=== PATIENT | female | born 1975 | race Caucasian/White ===

== ENCOUNTER → 2016-10-09 | Outpatient (REF) | payer OTHER | LOC: M LAB REF 13:28 | PROVIDERS: ATTEND Physician Assistant Medical | DX: Z12.4 Encounter for screening for malignant neoplasm of cervix (principal) ==

== ENCOUNTER → 2018-05-22 | Outpatient (REF) | payer OTHER | LOC: M LAB REF 17:14 | DX: L29.0 Pruritus ani (principal) | CPT/HCPCS: 87070 ==

== ENCOUNTER → 2018-05-28 | Outpatient (REF) | payer OTHER | LOC: M LAB REF 05-29 18:53 | DX: J02.9 Acute pharyngitis, unspecified (principal) | CPT/HCPCS: 87081 ==

== ENCOUNTER → 2018-06-11 | Outpatient (REF) | payer OTHER | LOC: M LAB REF 09:39 | DX: J02.9 Acute pharyngitis, unspecified (principal) ==

== ENCOUNTER → 2018-12-12 | Outpatient (CLI) | payer OTHER ==
[2018-12-12 09:34] LABS: BASO # 0.1 10^3/uL (0.0-0.2); BASO % 0.9 % (0.0-1.0); EOS # 0.2 10^3/uL (0.0-0.50); EOS % 2.6 % (0.0-3.0); HEMATOCRIT 36.2 % (36.0-47.0); HEMOGLOBIN 11.5 g/dl (12.0-15.5); LYMPH # 1.5 10^3/uL (1.5-4.5); LYMPH % 21.2 % (24.0-44.0); MEAN CORPUSCULAR HEMOGLOBIN 25.4 pg (27.0-33.0); MEAN CORPUSCULAR HGB CONC 31.8 g/dl (32.0-36.5); MEAN CORPUSCULAR VOLUME 79.9 fl (80.0-96.0); MONO # 0.6 10^3/uL (0.0-0.8); MONO % 8.9 % (0.0-5.0); NEUTROPHILS # 4.6 10^3/uL (1.8-7.7); NEUTROPHILS % 65.8 % (36.0-66.0); PLATELET COUNT, AUTOMATED 346 10^3/uL (150-450); RED BLOOD COUNT 4.53 10^6/uL (4.00-5.40)
[2018-12-12 10:01] LABS: ALBUMIN 3.8 GM/DL (3.2-5.2); ALT/SGPT 20 U/L (12-78); BILIRUBIN,TOTAL 0.4 MG/DL (0.2-1.0); BLOOD UREA NITROGEN 12 MG/DL (7-18); CALCIUM LEVEL 8.6 MG/DL (8.5-10.1); CARBON DIOXIDE LEVEL 23 MEQ/L (21-32); CHLORIDE LEVEL 106 MEQ/L (98-107); CHOLESTEROL LEVEL 181 MG/DL (<200); CHOLESTEROL RISK RATIO 3.351 (<5); CREATININE FOR GFR 0.84 MG/DL (0.55-1.30); FERRITIN 5 NG/ML (8-252); GLOMERULAR FILTRATION RATE > 60.0 (>58); GLUCOSE, FASTING 91 MG/DL (70-100); HDL CHOLESTEROL 54 MG/DL (>40); IRON (FE) 50 UG/DL (50-170); LDL CHOLESTEROL 105 MG/DL (<100); NON-HDL-C 127 MG/DL; PERCENT SATURATION 9.5 % (13.2-45.0); POTASSIUM SERUM 4.3 MEQ/L (3.5-5.1); SODIUM LEVEL 137 MEQ/L (136-145); TOTAL IRON BINDING CAPACITY 525 UG/DL (250-450); TOTAL PROTEIN 7.5 GM/DL (6.4-8.2); TRIGLYCERIDES LEVEL 112 MG/DL (<150)
[2018-12-12 10:33] LABS: TOTAL 25(OH) VITAMIN D 26.7 NG/ML (30.0-100.0)
== END ==
LOC: M LAB 08:42
PROVIDERS: ATTEND Family Medicine
DX: D50.9 Iron deficiency anemia, unspecified (principal); E55.9 Vitamin D deficiency, unspecified; R03.0 Elevated blood-pressure reading, without diagnosis of hypertension

== ENCOUNTER → 2019-09-30 | Outpatient (CLI) | payer OTHER ==
[2019-09-30 13:52] LABS: BASO # 0.1 10^3/uL (0.0-0.2); BASO % 0.9 % (0.0-1.0); EOS # 0.3 10^3/uL (0.0-0.5); EOS % 4.1 % (0.0-3.0); HEMATOCRIT 34.8 % (36.0-47.0); HEMOGLOBIN 10.6 g/dl (12.0-15.5); LYMPH # 1.9 10^3/uL (1.5-5.0); LYMPH % 24.4 % (24.0-44.0); MEAN CORPUSCULAR HEMOGLOBIN 23.9 pg (27.0-33.0); MEAN CORPUSCULAR HGB CONC 30.5 g/dl (32.0-36.5); MEAN CORPUSCULAR VOLUME 78.6 fl (80.0-96.0); MONO # 0.7 10^3/uL (0.0-0.8); MONO % 8.6 % (0.0-5.0); NEUTROPHILS # 4.7 10^3/uL (1.5-8.5); NEUTROPHILS % 61.6 % (36.0-66.0); PLATELET COUNT, AUTOMATED 382 10^3/uL (150-450); RED BLOOD COUNT 4.43 10^6/uL (4.00-5.40); WHITE BLOOD COUNT 7.6 10^3/uL (4.0-10.0)
[2019-09-30 14:28] LABS: FERRITIN 4 NG/ML (8-252); IRON (FE) 28 UG/DL (50-170); PERCENT SATURATION 5.2 % (13.2-45.0); TOTAL IRON BINDING CAPACITY 541 UG/DL (250-450)
[2019-10-01 13:01] LABS: AMYLASE 49 U/L (25-115); LIPASE 111 U/L (73-393)
[2019-10-01 13:19] LABS: H PYLORI QUALITATIVE IgG NEGATIVE (NEGATIVE)
== END ==
LOC: M LAB 13:15
PROVIDERS: ATTEND Family Medicine
DX: D50.9 Iron deficiency anemia, unspecified (principal); K29.00 Acute gastritis without bleeding

== ENCOUNTER 2020-02-15 12:45 | Day surgery (SDC) | payer OTHER ==
[~2020-02-15] VITALS: Ht 167.6 cm; Wt 86.2 kg
[2020-02-15] MEDS ORDERED: NS 1,000 ML IV ONE (13:15)
[2020-02-15] MEDS ORDERED: propofoL 200 MG/20 ML VIAL As Ordered ONE ×3 (13:18→13:33)
[2020-02-15] MEDS ORDERED: LIDOCAINE 2% 100MG/5ML SDV (FOR ANES.) As Ordered ONE (13:18)
--- NOTE | 2020-02-15 13:29 | ROOR ---
Patient Name: Nu Frost Procedure Date: 02/15/2020 1:16 PM Date of : 1975 Age: 44 Room: [facility] Gender: Female Note Status: Finalized Procedure: Upper GI endoscopy Indications: Iron deficiency anemia Providers: Karan SIBLEY MD Referring MD: Fiordaliza Cerrato MD Requesting Provider: Medicines: Monitored Anesthesia Care Complications: No immediate complications. Procedure: Pre-Anesthesia Assessment: - The heart rate, respiratory rate, oxygen saturations, blood pressure, adequacy of pulmonary ventilation, and response to care were monitored throughout the procedure. The Endoscope was introduced through the mouth, and advanced to the third part of duodenum. The upper GI endoscopy was accomplished without difficulty. The patient tolerated the procedure well. Findings: The esophagus was normal. The stomach was normal. The examined duodenum was normal. Biopsies for histology were taken with a cold forceps in the second portion of the duodenum and in the third portion of the duodenum for evaluation of celiac disease. Impression: - Normal esophagus. - Normal stomach. - Normal examined duodenum. - Biopsies were taken with a cold forceps for evaluation of celiac disease. Recommendation: - Await pathology results. - Telephone endoscopist for pathology results in 2 weeks. Karan Sibley MD Karan SIBLEY MD 02/15/2020 1:28:50 PM Electronically signed by Karan SIBLEY MD Number of Addenda: 0 Note Initiated On: 02/15/2020 1:16 PM Estimated Blood Loss: Estimated blood loss: none.
--- NOTE | 2020-02-15 13:47 | ROOR ---
Patient Name: Nu Frost Procedure Date: 02/15/2020 1:17 PM Date of : 1975 Age: 44 Room: [facility] Gender: Female Note Status: Finalized Procedure: Colonoscopy Indications: Iron deficiency anemia Providers: Karan SIBLEY MD Referring MD: Fiordaliza Cerrato MD Requesting Provider: Medicines: Monitored Anesthesia Care Complications: No immediate complications. Procedure: Pre-Anesthesia Assessment: - The heart rate, respiratory rate, oxygen saturations, blood pressure, adequacy of pulmonary ventilation, and response to care were monitored throughout the procedure. The Colonoscope was introduced through the anus and advanced to 10 cm into the ileum. The colonoscopy was performed without difficulty. The patient tolerated the procedure well. The quality of the bowel preparation was good. Findings: The perianal and digital rectal examinations were normal. Multiple small and medium-mouthed diverticula were found in the entire colon. Internal hemorrhoids were found during retroflexion. The hemorrhoids were small. The exam was otherwise normal throughout the examined colon. The terminal ileum appeared normal. Impression: - Scattered diverticulosis throughout the entire examined colon. - Small Internal hemorrhoids. - The colon is otherwise normal. - The terminal ileum is normal. - No specimens collected. Recommendation: - Return to referring physician as previously scheduled. - Continue present medications. Karan Sibley MD Karan SIBLEY MD 02/15/2020 1:47:28 PM Electronically signed by Karan SILBEY MD Number of Addenda: 0 Note Initiated On: 02/15/2020 1:17 PM Estimated Blood Loss: Estimated blood loss: none.
[2020-02-15 14:15] VITALS: BP 122/70
[2020-06-02] MEDS ORDERED: IRON15CH PO (08:39)
[2020-06-02] MEDS ORDERED: FLUO40CA PO (08:39)
== END 2020-02-15 14:40 | disposition home or self-care (01) ==
LOC: M OPP 12:45
PROVIDERS: ATTEND Internal Medicine Gastroenterology
DX: K57.30 Diverticulosis of large intestine without perforation or abscess without bleeding (principal); K64.8 Other hemorrhoids; D50.9 Iron deficiency anemia, unspecified

== ENCOUNTER → 2020-05-27 | Outpatient (CLI) | payer OTHER ==
[~2020-05-27] MED LIST: FLUO40CA PO; IRON15CH PO
[2020-05-27 12:58] LABS: BASO % 0.4 % (0.0-1.0); EOS # 0.1 10^3/uL (0.0-0.5); EOS % 1.2 % (0.0-3.0); HEMATOCRIT 36.8 % (36.0-47.0); HEMOGLOBIN 10.9 g/dl (12.0-15.5); LYMPH # 1.5 10^3/uL (1.5-5.0); LYMPH % 22.5 % (24.0-44.0); MEAN CORPUSCULAR HEMOGLOBIN 22.5 pg (27.0-33.0); MEAN CORPUSCULAR HGB CONC 29.6 g/dl (32.0-36.5); MONO # 0.7 10^3/uL (0.0-0.8); MONO % 10.4 % (0.0-5.0); NEUTROPHILS # 4.4 10^3/uL (1.5-8.5); NEUTROPHILS % 65.1 % (36.0-66.0); PLATELET COUNT, AUTOMATED 391 10^3/uL (150-450); RED BLOOD COUNT 4.84 10^6/uL (4.00-5.40); WHITE BLOOD COUNT 6.7 10^3/uL (4.0-10.0)
[2020-05-27 13:48] LABS: BLOOD UREA NITROGEN 10 MG/DL (7-18); CALCIUM LEVEL 8.8 MG/DL (8.5-10.1); CARBON DIOXIDE LEVEL 23 MEQ/L (21-32); CHLORIDE LEVEL 107 MEQ/L (98-107); GLOMERULAR FILTRATION RATE > 60.0 (>58); GLUCOSE, FASTING 87 MG/DL (70-100); POTASSIUM SERUM 3.9 MEQ/L (3.5-5.1); SODIUM LEVEL 138 MEQ/L (136-145)
[2020-05-27 13:49] LABS: ALBUMIN 3.9 GM/DL (3.2-5.2); ALT/SGPT 22 U/L (12-78); BILIRUBIN,TOTAL 0.3 MG/DL (0.2-1.0); CHOLESTEROL LEVEL 180 MG/DL (<200); FERRITIN 4 NG/ML (8-252); HDL CHOLESTEROL 60 MG/DL (>40); IRON (FE) 18 UG/DL (50-170); LDL CHOLESTEROL 92 MG/DL (<100); NON-HDL-C 120 MG/DL; PERCENT SATURATION 3.3 % (13.2-45.0); TOTAL 25(OH) VITAMIN D 28.8 NG/ML (30.0-100.0); TOTAL IRON BINDING CAPACITY 539 UG/DL (250-450); TOTAL PROTEIN 7.7 GM/DL (6.4-8.2); TRIGLYCERIDES LEVEL 138 MG/DL (<150)
== END ==
LOC: M LAB 10:45
PROVIDERS: ATTEND Family Medicine
DX: D50.9 Iron deficiency anemia, unspecified (principal); E55.9 Vitamin D deficiency, unspecified; Z13.220 Encounter for screening for lipoid disorders; Z13.1 Encounter for screening for diabetes mellitus

== ENCOUNTER → 2020-06-04 | Outpatient (CLI) | payer OTHER | LOC: M LABSMTC 07:59 | PROVIDERS: ATTEND Anesthesiology | DX: Z01.818 Encounter for other preprocedural examination (principal); Z20.828 Contact with and (suspected) exposure to other viral communicable diseases | CPT/HCPCS: C9803; U0003 ==

== ENCOUNTER 2020-06-09 06:17 | Day surgery (SDC) | payer OTHER ==
[2020-06-09] VITALS (8 sets, daily range): BP systolic 103–123; BP diastolic 64–95
[~2020-06-09] VITALS: Ht 167.6 cm; Wt 86.2 kg
[~2020-06-09 06:17] MED LIST changes: +LR 1,000 ML IV ONE; +ceFAZolin SOD 2 GM in IV 1 EA IV ONE
[2020-06-09] MEDS ORDERED: fentaNYL 250 MCG/5 ML INJECTION (J3010) As Ordered ONE (06:58)
[2020-06-09] MEDS ORDERED: ONDANSETRON 4MG/2ML VIAL As Ordered ONE ×2 (06:58→10:33)
[2020-06-09] MEDS ORDERED: MIDAZOLAM INJ 2MG/2ML VIAL (J2250 PER 1MG) As Ordered ONE (06:58)
[2020-06-09] MEDS ORDERED: KETOROLAC 60MG 2ML VIAL As Ordered ONE (06:58)
[2020-06-09] MEDS ORDERED: dexameTHASONE 4 MG/ML 1ML VIAL (J1100 PER 1MG) As Ordered ONE (06:58)
[2020-06-09] MEDS ORDERED: propofoL 200 MG/20 ML VIAL As Ordered ONE (06:59)
[2020-06-09] MEDS ORDERED: SUGAMMADEX SODIUM 500 MG/5 ML VIAL (BRIDION) As Ordered ONE (06:59)
[2020-06-09] MEDS ORDERED: PHENYLephrine HCL 500 MCG/5 ML (100MCG/ML) SYRINGE (J2370) As Ordered ONE (06:59)
[2020-06-09] MEDS ORDERED: ePHEDrine SULFATE 25 MG/5 ML(5MG/ML) SYRINGE As Ordered ONE (06:59)
[2020-06-09] MEDS ORDERED: LIDOCAINE 2% 100MG/5ML SDV (FOR ANES.) As Ordered ONE (06:59)
[2020-06-09] MEDS ORDERED: ROCURONIUM BROMIDE 50 MG/5 ML VIAL As Ordered ONE ×2 (06:59→09:03)
[2020-06-09] MEDS ORDERED: SCOPOLAMINE 1MG TRANSDERMAL PATCH As Ordered ONE (07:11)
[2020-06-09 07:14] LABS: HEMATOCRIT 30.5 % (36.0-47.0); HEMOGLOBIN 9.2 g/dl (12.0-15.5); MEAN CORPUSCULAR HEMOGLOBIN 22.8 pg (27.0-33.0); MEAN CORPUSCULAR HGB CONC 30.2 g/dl (32.0-36.5); MEAN CORPUSCULAR VOLUME 75.7 fl (80.0-96.0); PLATELET COUNT, AUTOMATED 333 10^3/uL (150-450); RED BLOOD COUNT 4.03 10^6/uL (4.00-5.40); WHITE BLOOD COUNT 4.8 10^3/uL (4.0-10.0)
[2020-06-09] MEDS ORDERED: ACETAMINOPHEN 1000MG 100ML IV BTL (OFIRMEV) (J0131 PER 10MG) As Ordered ONE (07:55)
[2020-06-09] MEDS ORDERED: GLYCOPYRROLATE INJ 0.2 MG/ML 2 ML VIAL As Ordered ONE (08:50)
[2020-06-09] MEDS ORDERED: fentaNYL 100 MCG/2 ML INJECTION (J3010) As Ordered ONE (10:40)
[2020-06-09] MEDS: fentaNYL 100 MCG/2 ML INJECTION (J3010) IV PRN ×4 (10:41→11:01)
[2020-06-09] MEDS ORDERED: diphenhydrAMINE 50MG/ML VIAL (J1200) IV PRN (11:15)
[2020-06-09] MEDS ORDERED: METOCLOPRAMIDE INJ 10MG/2ML VIAL (J2765 PER 1) IV PRN (11:15)
[2020-06-09] MEDS ORDERED: PERCOCET 5MG/325MG TAB PO PRN (11:15)
[2020-06-09] MEDS ORDERED: NS 1,000 ML IV SCH (11:15)
[2020-06-09] MEDS ORDERED: NALOXONE INJ 0.4MG/1ML VIAL (J2310 PER 1MG) IV PRN (11:15)
[2020-06-09] MEDS ORDERED: ONDANSETRON 4MG/2ML VIAL IV PRN (11:15)
[2020-06-09] MEDS ORDERED: EPIDURAL/PCA KEYS XX PRN (11:15)
[2020-06-09] MEDS ORDERED: NALBUPHINE HCL 10 MG/ML AMP (J2300) IV PRN (11:15)
[2020-06-09] MEDS ORDERED: LR 1,000 ML IV SCH (11:15)
[2020-06-09] MEDS ORDERED: MORPHINE 1MG/ML IN 0.9% NACL 100ML IV BAG IV PRN (11:15)
[2020-06-09] MEDS: LR 1,000 ML IV SCH ×2 (11:30→22:13)
[2020-06-09] MEDS ORDERED: IBUPROFEN 600MG TAB PO PRN (11:30)
[2020-06-10 02:00] VITALS: BP 103/57
[2020-06-10] MEDS: LR 1,000 ML IV SCH (03:39)
[2020-06-10 06:00] VITALS: BP 106/59
[2020-06-10] MEDS ORDERED: NORCO, ANEXSIA 5/325MG TABLET (HYDROcodone/ACETAMINOPHEN) PO PRN (06:00)
[2020-06-10 06:27] LABS: HEMATOCRIT 27.9 % (36.0-47.0); HEMOGLOBIN 8.4 g/dl (12.0-15.5); MEAN CORPUSCULAR HEMOGLOBIN 23.1 pg (27.0-33.0); MEAN CORPUSCULAR HGB CONC 30.1 g/dl (32.0-36.5); MEAN CORPUSCULAR VOLUME 76.9 fl (80.0-96.0); PLATELET COUNT, AUTOMATED 290 10^3/uL (150-450); RED BLOOD COUNT 3.63 10^6/uL (4.00-5.40)
--- NOTE | 2020-06-10 07:46 | RO ---
DATE OF OPERATION: 06/09/2020 PREOPERATIVE DIAGNOSIS/INDICATION FOR SURGERY: Pain, bleeding and fibroids. POSTOPERATIVE DIAGNOSIS: Pain, bleeding and fibroids, endometriosis. PROCEDURE: Robotic-assisted hysterectomy with bilateral salpingo-oophorectomy. SURGEON: Elizabeth Clarke MD STACKING MACHINE OPERATOR: Monika Mercedes ANESTHESIA: General endotracheal anesthesia. BRIEF DESCRIPTION OF PROCEDURE AND FINDINGS: Nu was brought to the operating room where sufficient general endotracheal anesthesia was induced. She was prepped, draped and positioned in the usual sterile fashion with the uterine manipulator placed with some effort and then attention turned to the abdomen. A transverse semilunar incision was made over the line of her previous incision at the umbilicus. Sharp and blunt dissection was continued through the subcutaneous tissues to the level of the rectus fascia which was transversely incised, secured with #0 Vicryl retention sutures and peritoneum was then opened in direct open laparoscopic technique and Silvano cannula placed and CO2 insufflation then began. After adequate CO2 insufflation the peritoneal cavity was visualized. The upper abdomen was quite normal, no particular adhesions, but in the pelvis there were multiple adhesions of the descending colon suggestive of a little bit more than the typical and some of these are pictured because some of these are from the descending colon scarred anterior to the uterus and anteriorly to the left ovary and left infundibulopelvic ligament and there were also implants of what appeared to be endometriosis over the posterior cul-de-sac and the posterior aspect of the cervix at the level of the uterosacrals. There were also multiple adhesions anteriorly consistent with her history over the area of the bladder and there were benign appearing cysts upon the ovaries. There did not appear to be any endometriomas. Some pictures were taken to document all of this. The uterus was enlarged with fibroids as is documented in the pictures. This did not preclude us visualizing the ureters but it did minimize our ability to manipulate the uterus using the uterine manipulator. Working laparoscopically we placed two left side and one right side port for the robot and then docked the robot. With the patient in appropriate Trendelenburg position we began working from the robot console. Working from the robot console we then carefully brought down these adhesions along the descending colon and into the pelvis from the bowel to the uterus, lateral pelvic sidewall, the infundibulopelvic ligament and the ovary and having freed those adequately we then used bipolar cautery to cauterize the infundibulopelvic ligament on the left side and then carefully work our way through the broad ligament to the round and then progressed over to the patients right side. Using the physician assistant primary care port we displaced the uterus laterally because we really had limited mobility with the uterine manipulator because of the size of the uterus and its fibroids and scarring. After freeing the infundibulopelvic ligament and isolating it on the right side we were able to cauterize and transect it, again using the bipolar and then the robotic scissors and then carefully work our way through the broad ligament on the right side to the round which was also incised. It should be noted as documented on the photos there is a slight dimpling as the round enters the lateral pelvic sidewall on the right side, not a full blown hernia but a little dimple there. After we transected the round we worked down the anterior leaflet of the broad ligament and then back-filled the bladder several times as we carefully incised the bladder flap anteriorly and then were able to bring that bladder flap down anteriorly. Using the physician assistant primary care port and both tools we were able to see our way around the uterus in order to cauterize and transect the uterines but we had limited access posteriorly away from the bowel and anteriorly had some trouble getting low enough for the cuff and as we used the manipulator to push really hard to try to elevate this we perforated the anterior aspect of the uterus which was of course was coming out anyway and this was a dry perforation because we had already controlled the vessels. We could see that we did not have the manipulator fully seated, in part because we were in the canal and the fibroids were over top of that and were not readily manipulated from below. Given that we had the vascular supply controlled and the number of adhesions there were and some adhesions in the posterior cul-de-sac with that endometriosis evidence we decided to go below to free the cervix itself and then deliver the uterus. We then worked vaginally removing the uterine manipulator and of course taking all the sharp instruments out of the peritoneal cavity, then worked vaginally to circumferentially incise the cervix, isolate the cardinal ligaments, clamp, transect and ligate them using BuckleySchaefer clamps, Supercut scissors and then #0 Vicryl suture which was used for the entirety of the vaginal aspect of the approach and then the uterosacrals were carefully clamped, transected and ligated. From below, now that we had freed all the vascular supply, we were able to go through the posterior cuff without as much danger to the bowel and then join up with our already created anterior bladder dissection and vascular dissection and then deliver the uterus vaginally. The uterus was 307 gm so of course quite enlarged with those fibroids. It is possible, based on the visual appearance in the pelvis and the evidence of endometriosis that some of that is adenomyosis so of course the pathology will tell us that. We then used long Allis clamps to grasp the angles, oversewed the angles at the vaginal cuffs and re-secured the uterosacrals with #0 Vicryl with good hemostasis at all the pedicles. We closed the cuff vaginally using #0 Vicryl in running locked stitch with good approximation and hemostasis achieved. We had already had a view from above so we were able then to just remove the instruments and ports from above. We closed the deep wound at the umbilicus with #0 Vicryl retention sutures and then all the skin wounds were closed with 3-0 Vicryl subcuticular stitch. There was a little oozing on the right side port, did a deep layer closure there and that appeared to offer hemostasis. We closed the skin again with 3-0 Vicryl with good approximation and hemostasis achieved. Dry, sterile dressings were applied. ESTIMATED BLOOD LOSS FOR THE PROCEDURE: 80 mL. FLUID REPLACEMENT: Crystalloid. COMPLICATIONS: None. CONDITION AND DISPOSITION: Nu tolerated the procedure well and was recovering in the recovery room in good condition. HUNTER
== END 2020-06-10 11:25 | disposition home or self-care (01) ==
LOC: M SDC 06:17 → M MS5PR 12:00 → M SDC 06-10 11:25
PROVIDERS: ATTEND Obstetrics & Gynecology
DX: R10.2 Pelvic and perineal pain (principal); N93.9 Abnormal uterine and vaginal bleeding, unspecified; N80.0 Endometriosis of uterus; D25.9 Leiomyoma of uterus, unspecified; D64.9 Anemia, unspecified; F32.9 Major depressive disorder, single episode, unspecified; Z79.899 Other long term (current) drug therapy
CPT/HCPCS: 36415; 58573; 81025; 85027; 86850; 86900; 86901; 88307; 96360; 96361; J0131; J0690; J1100; J1885; J2250; J2370; J2405; J2765; J3010; S2900

== ENCOUNTER → 2020-07-05 | Outpatient (REF) | payer OTHER ==
[~2020-07-05] MED LIST changes: -LR 1,000 ML IV ONE; -ceFAZolin SOD 2 GM in IV 1 EA IV ONE
[2020-07-05 11:05] LABS: AMORPHOUS SEDIMENT SMALL (NEGATIVE); APPEARANCE, URINE CLEAR (CLEAR); BACTERIA, URINE AUTO 1+ (NEGATIVE); BILIRUBIN, URINE AUTO NEGATIVE (NEGATIVE); BLOOD, URINE BLOOD NEGATIVE (NEGATIVE); COLOR, URINE STRAW (YELLOW); GLUCOSE, URINE (UA) AUTO NEGATIVE (NEGATIVE); KETONE, URINE AUTO NEGATIVE (NEGATIVE); LEUKOCYTE ESTERASE, URINE AUTO 1+ (NEGATIVE); NITRITE, URINE AUTO NEGATIVE (NEGATIVE); PROTEIN, URINE AUTO NEGATIVE (NEGATIVE); RBC, URINE AUTO 0 /HPF (0-3); SPECIFIC GRAVITY URINE AUTO 1.003 (1.002-1.035); SQUAMOUS EPITHELIAL CELL UR AU 1 /HPF (0-6); UROBILINOGEN, URINE AUTO 0.2 mg/dL (0.0-2.0); WBC, URINE AUTO 1 /HPF (0-3)
== END ==
LOC: M SFHCPLAZ 08:39
PROVIDERS: ATTEND Family Medicine
DX: D50.9 Iron deficiency anemia, unspecified (principal); R31.0 Gross hematuria

== ENCOUNTER → 2021-06-13 | Outpatient (CLI) | payer OTHER ==
[2021-06-13 14:08] LABS: HEMATOCRIT 45.1 % (36.0-47.0); MEAN CORPUSCULAR HEMOGLOBIN 29.3 pg (27.0-33.0); MEAN CORPUSCULAR HGB CONC 33.3 g/dl (32.0-36.5); MEAN CORPUSCULAR VOLUME 88.1 fl (80.0-96.0); PLATELET COUNT, AUTOMATED 306 10^3/uL (150-450); RED BLOOD COUNT 5.12 10^6/uL (4.00-5.40); WHITE BLOOD COUNT 10.3 10^3/uL (4.0-10.0)
== END ==
LOC: M LAB 13:16
PROVIDERS: ATTEND Family Medicine
DX: D50.9 Iron deficiency anemia, unspecified (principal)

== ENCOUNTER → 2021-12-08 | Outpatient (CLI) | payer OTHER | LOC: M SLEEP HO 12:52 | PROVIDERS: ATTEND Nurse Practitioner Family | DX: R06.83 Snoring (principal) ==

== ENCOUNTER → 2022-02-19 | Outpatient (CLI) | payer OTHER | LOC: M CARPUL 11:55 | PROVIDERS: ATTEND Physician Assistant | DX: R07.89 Other chest pain (principal) ==

== ENCOUNTER → 2022-07-24 | Outpatient (CLI) | payer OTHER | LOC: M RAD 13:55 | PROVIDERS: ATTEND Internal Medicine | DX: R10.32 Left lower quadrant pain (principal) ==

== ENCOUNTER → 2022-10-01 | Outpatient (CLI) | payer OTHER | LOC: M WHC 06:44 | PROVIDERS: ATTEND Internal Medicine | DX: R10.32 Left lower quadrant pain (principal) ==

== ENCOUNTER → 2023-05-21 | Outpatient (CLI) | payer OTHER ==
[2023-05-21 18:09] LABS: LUTEINIZING HORMONE 11.6 mIU/ML; PROGESTERONE 0.28 NG/ML
[2023-05-21 18:10] LABS: ESTRADIOL 71.3 PG/ML; FOLLICLE STIMULATING HORMONE 19.5 mIU/ML
== END ==
LOC: M LAB 16:46
PROVIDERS: ATTEND Obstetrics & Gynecology
DX: N95.1 Menopausal and female climacteric states (principal); E34.9 Endocrine disorder, unspecified; F52.0 Hypoactive sexual desire disorder

== ENCOUNTER → 2023-10-14 | Outpatient (REF) | payer OTHER | LOC: M LAB REF 16:48 | PROVIDERS: ATTEND Internal Medicine | DX: N39.0 Urinary tract infection, site not specified (principal) ==

== ENCOUNTER → 2024-01-13 | Outpatient (CLI) | payer OTHER ==
[2024-01-13 12:14] LABS: ESTRADIOL 81.5 PG/ML; LUTEINIZING HORMONE 6.7 mIU/ML
[2024-01-13 12:24] LABS: PROGESTERONE 0.34 NG/ML
== END ==
LOC: M LAB 10:59
PROVIDERS: ATTEND Obstetrics & Gynecology
DX: N95.1 Menopausal and female climacteric states (principal); E34.9 Endocrine disorder, unspecified; F52.0 Hypoactive sexual desire disorder

== ENCOUNTER → 2024-11-20 | Outpatient (CLI) | payer OTHER ==
[2024-11-20 13:43] LABS: FOLLICLE STIMULATING HORMONE 8.7 mIU/ML; LUTEINIZING HORMONE 3.8 mIU/ML; PROGESTERONE < 0.21 NG/ML
[2024-11-20 13:44] LABS: ESTRADIOL 79.6 PG/ML
== END ==
LOC: M LAB 11:51
PROVIDERS: ATTEND Obstetrics & Gynecology
DX: N95.1 Menopausal and female climacteric states (principal); E34.9 Endocrine disorder, unspecified; F52.0 Hypoactive sexual desire disorder